=== PATIENT | male | born 1985 | race African-American/Black ===

== ENCOUNTER 2023-03-02 16:10 | Emergency (ER) | payer OTHER ==
[2023-03-02] MEDS ORDERED: HYDROCODONE/APAP 10/325 TAB ONE (16:38)
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
--- NOTE | 2023-03-02 17:12 | RAD REPORT ---
EXAM DESCRIPTION: RAD - Knee Right 3 View - 03/02/2023 5:07 pm CLINICAL HISTORY: PAIN COMPARISON: No comparisons FINDINGS: Soft tissue swelling is seen anterior right knee. No fracture, dislocation or joint effusi on.
--- NOTE | 2023-03-02 17:13 | RAD REPORT ---
EXAM DESCRIPTION: RAD - Elbow Right 3 View - 03/02/2023 5:07 pm CLINICAL HISTORY: PAIN COMPARISON: No comparisons FINDINGS: No acute fracture or dislocation seen. Tiny olecranon spur.
--- NOTE | 2023-03-02 17:13 | RAD REPORT ---
EXAM DESCRIPTION: RAD - Forearm Right - 03/02/2023 5:07 pm CLINICAL HISTORY: PAIN COMPARISON: No comparisons FINDINGS: Soft tissue swelling is seen about the forearm. Tiny olecranon spur. No acute fracture or dislocation.
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
[2023-03-02] MEDS ORDERED: DERMABOND SKIN ADHESIVE TOP ONE (18:14)
[2023-03-02 20:02] VITALS: TEMP 98.4
[2023-03-02 20:04] VITALS: BP 119/91; O2SAT 97
== END 2023-03-02 18:37 ==
LOC: ER 16:10
PROC: 0HQ3XZZ Repair Left Ear Skin, External Approach (ICD-10-PCS; principal; 2023-03-02)
DX: S01.312A Laceration without foreign body of left ear, initial encounter (principal); S09.90XA Unspecified injury of head, initial encounter; S50.11XA Contusion of right forearm, initial encounter; M25.521 Pain in right elbow; M25.561 Pain in right knee; Z88.3 Allergy status to other anti-infective agents
CPT/HCPCS: 70450; 70486; 72125; 76377; 99285